=== PATIENT | female | born 1985 | race African-American/Black ===

== ENCOUNTER 2016-11-15 13:00 | Emergency (ER) | payer OTHER ==
[~2016-11-15] VITALS: Ht 144.8 cm; Wt 74.8 kg
[2016-11-15 14:11] LABS: URINE BILIRUBIN NEGATIVE (Negative); URINE BLOOD NEGATIVE (Negative); URINE COLOR YELLOW; URINE GLUCOSE-RANDOM* NEGATIVE (Negative); URINE KETONES NEGATIVE (Negative); URINE NITRITE NEGATIVE (Negative); URINE PROTEIN (DIPSTICK) NEGATIVE (Negative); URINE UROBILINOGEN 0.2 E.U./dl (0.2-1.0)
[2016-11-15 14:13] LABS: ABSOLUTE NEUTROPHILS 10.4 thou/uL (1.4-8.2); BASOPHILS 0.8 % (0.0-2.0); EOSINOPHILS 0.8 % (0.0-3.0); HEMATOCRIT 42.8 % (37.0-47.0); HEMOGLOBIN 14.2 gm/dL (12.0-15.0); LYMPHOCYTES 27.2 % (24.0-44.0); MCH 30.5 pg (26.0-34.0); MCHC 33.1 g/dL (28.0-37.0); MCV 92.2 fL (80.0-100.0); MONOCYTES 5.1 % (1.0-8.0); PLATELET COUNT 411 thou/uL (150-400); POLYS 66.1 % (36.0-66.0); RBC 4.64 mil/uL (4.20-5.00); RDW 12.6 % (10.5-14.5); WBC 15.8 thou/uL (4.0-11.0)
[2016-11-15 14:17] LABS: MANUAL DIFF NO
[2016-11-15 14:20] LABS: CALCIUM 9.4 mg/dL (8.5-10.1); CREATININE 0.7 mg/dL (0.6-1.0); POTASSIUM 3.9 mmol/L (3.5-5.1)
[2016-11-15 15:16] VITALS: BP 131/81
== END 2016-11-15 15:17 | disposition home or self-care (01) ==
LOC: ER 13:00
PROVIDERS: Nurse Practitioner Family
DX: R42 Dizziness and giddiness (principal); I10 Essential (primary) hypertension; F17.210 Nicotine dependence, cigarettes, uncomplicated; J45.909 Unspecified asthma, uncomplicated; Z88.5 Allergy status to narcotic agent; Z88.6 Allergy status to analgesic agent